=== PATIENT | male | born 1995 | race Caucasian/White ===

== ENCOUNTER 2017-02-13 11:34 | Emergency (ER) | payer OTHER ==
[2017-02-13 12:20] VITALS: BP 152/59
[2017-02-13] MEDS ORDERED: BSS OPTH.SOL* BTL ONE (12:24)
[2017-02-13] MEDS ORDERED: Tetracaine 0.5% OPTH.SOL 4 ML* 1 DROP BTL ONE (12:24)
[2017-02-13] MEDS ORDERED: Fluorescein Sodium TOPICAL* 1 MG TEST ONE ×2 (12:24→12:25)
--- NOTE | 2017-02-13 12:36 | UC ---
Eye Complaint HPI - HPI Summary HPI Summary: bilateral eye redness, itchy, discharge x 5 days no eye pain , no change in vision + nasal congestion, cough, no fever, no chills - History of Current Complaint Chief Complaint: UCGeneralIllness Stated Complaint: EYE COMPLAINT Hx Obtained From: Patient Onset/Duration: Gradual Onset, Lasting Days - 5, Still Present Timing: Constant Severity Initially: Moderate Severity Currently: Moderate Location of Injury: Conjunctiva Aggravating Factor(s): Nothing Alleviating Factor(s): Nothing Associated Signs And Symptoms: Negative: Photophobia, Drainage (Clear), Drainage (Purulent), Vision Impairment Bilateral, Vision Impairment Right, Vision Impairment Left, Fever, Swelling - Allergies/Home Medications Allergies/Adverse Reactions: Allergies Allergy/AdvReac Type Severity Reaction Status Date / Time No Known Allergies Allergy Verified 02/13/17 12:13 PMH/Surg Hx/FS Hx/Imm Hx Endocrine History Of: Denies: Diabetes, Thyroid Disease, Hyperthyroidism, Hypothyroidism, Dyslipidemia Cardiovascular History Of: Denies: Cardiac Disorders, Hypertension, Pacemaker/ICD, Myocardial Infarction , Congestive Heart Failure, Atrial Fibrillation, Deep Vein Thrombosis, Bleeding Disorders Respiratory History Of: Denies: COPD, Asthma, Bronchitis, Pneumonia, Pulmonary Embolism GI/ History Of: Denies: Gastroesophageal Reflux, Ulcer, Gastrointestinal Bleed, Gall Bladder Disease, Kidney Stones, Diverticulitis, Renal Disease, Urosepsis Neurological History Of: Denies: TIA, CVA, Dementia, Seizures, Migraine Psychological History Of: Denies: Anxiety, Depression, Bipolar Disorder, Schizophrenia, Post Traumatic Stress Disorder Cancer History Of: Denies: Lung Cancer, Colorectal Cancer, Breast Cancer, Prostate Cancer, Cervical Cancer Other History Of: Negative For: HIV, Hepatitis B, Hepatitis C, Anticoagulant Therapy - Surgical History Surgical History: Yes Surgery Procedure, Year, and Place: open reduction left fx fib/complete dislocation. tonsillectomy - Family History Known Family History: Positive: Cardiac Disease Negative: Hypertension - Social History Alcohol Use: Rare Substance Use Type: None Smoking Status (MU): Never Smoked Tobacco Review of Systems Constitutional: Negative Skin: Negative Eyes: Drainage, Eye Redness ENT: Sore Throat, Nasal Discharge Respiratory: Cough Cardiovascular: Negative Gastrointestinal: Negative All Other Systems Reviewed And Are Negative: Yes Physical Exam Triage Information Reviewed: Yes Appearance: Well-Appearing, No Pain Distress, Well-Nourished Vital Signs: Initial Vital Signs Temp 98.2 F 02/13/17 12:13 Pulse 53 02/13/17 12:13 Resp 18 02/13/17 12:13 BP 152/59 02/13/17 12:13 Pulse Ox 97 02/13/17 12:13 Vital Signs Reviewed: Yes Eyes: Positive: Conjunctiva Inflamed - bilateral, Discharge - bilateral ENT: Positive: Normal ENT inspection, Hearing grossly normal, Pharynx normal, Nasal congestion, Nasal drainage, TMs normal Neck: Positive: Supple, Nontender, No Lymphadenopathy Respiratory: Positive: Chest non-tender, Lungs clear, Normal breath sounds, No respiratory distress Cardiovascular: Positive: RRR, No Murmur, Pulses Normal Eye Complaint Course/Dx - Differential Dx/Diagnosis Provider Diagnoses: bilateral conjunctivitis. uri Discharge - Discharge Plan Condition: Stable Disposition: HOME Prescriptions: Tobramycin/Dexameth OPTH.SUSP* [Tobradex 0.3-0.1%*] 1 drop BOTH EYES Q4H #1 btl Patient Education Materials: Upper Respiratory Infection (ED), Conjunctivitis ( ED) Referrals: Non Staff,Doctor [Primary Care Provider] - If Needed
== END 2017-02-13 12:42 | disposition home or self-care (01) ==
LOC: UCCORT 11:34
DX: H10.9 Unspecified conjunctivitis (principal); J06.9 Acute upper respiratory infection, unspecified
CPT/HCPCS: 99212; A9270-GY; G0463

== ENCOUNTER 2018-01-08 16:21 | Emergency (ER) | payer OTHER ==
[2018-01-08 16:42] VITALS: BP 126/68
[2018-01-08] MEDS ORDERED: NS 0.9% 1000 ML* 1,000 ML IV ONE (17:38)
[2018-01-08] MEDS ORDERED: Ketorolac INJ* 30 MG/ML 1 ML VIAL IV PUSH ONE (17:39)
[2018-01-08] MEDS ORDERED: Ondansetron INJ* 2 MG/ML VIAL IV ONE (17:39)
--- NOTE | 2018-01-08 17:47 | UC ---
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 Pt states after his game yesterday did not feel well. Pt states ate steak and then promptly vomited. Since this time, pt with ongoing nausea, 2-3 episodes of emesis and 4-5 episodes of non-blood stool. Pt reports abdominal cramping and fever to 100.2 Pt did not take any analgesia. Pt attempted to eat toast but vomited. No johnson, congestions, sore throat. No cough. No cp, sob. Decreased urine. No pain in penis or testicles. Pt's medications reviewed this visit - History of Current Complaint Chief Complaint: UCGeneralIllness Stated Complaint: ABDOMINAL PAIN/VOMITING Time Seen by Provider: 01/08/18 17:30 Hx Obtained From: Patient, Other: - GF Onset/Duration: Sudden Onset, Lasting Days - 24 hours Severity Initially: Mild Severity Currently: Moderate Pain Intensity: 6 Pain Scale Used: 0-10 Numeric Location: Epigastric Character: Cramping Aggravating Factor(s): Food Alleviating Factor(s): Vomiting, Bowel Movement Nausea/Vomiting Presence: Nauseated, Vomiting Vomiting Frequency: Every 3-4 hours Nausea/Vomiting Duration: 12-24 hours Vomiting Characteristics: Retching, Nonbilious Diarrhea Presence: Yes Diarrhea Frequency: Every 3-4 hours Diarrhea Duration: 12-24 hours Diarrhea Characteristics: Watery - Allergies/Home Medications Allergies/Adverse Reactions: Allergies Allergy/AdvReac Type Severity Reaction Status Date / Time No Known Allergies Allergy Verified 01/08/18 16:37 PMH/Surg Hx/FS Hx/Imm Hx Previously Healthy: Yes Other History Of: Negative For: HIV, Hepatitis B, Hepatitis C, Anticoagulant Therapy - Surgical History Surgical History: Yes Surgery Procedure, Year, and Place: open reduction left fx fib/complete dislocation. tonsillectomy - Family History Known Family History: Positive: Cardiac Disease Negative: Hypertension - Social History Occupation: Student Lives: Dormitory/Roommates - house with roommates Alcohol Use: Rare Substance Use Type: None Smoking Status (MU): Never Smoked Tobacco Review of Systems Constitutional: Fever, Fatigue Gastrointestinal: Abdominal Pain, Vomiting, Nausea Genitourinary: Negative All Other Systems Reviewed And Are Negative: Yes Physical Exam Triage Information Reviewed: Yes Appearance: Well-Nourished, Ill-Appearing - tired appearing, dry no distress no obvious pain Vital Signs: Initial Vital Signs Temp 100.0 F 01/08/18 16:37 Pulse 64 01/08/18 16:37 Resp 18 01/08/18 16:37 BP 126/68 01/08/18 16:37 Pulse Ox 98 01/08/18 16:37 Eye Exam: Normal Eyes: Positive: Conjunctiva Clear ENT: Positive: Other - TM x2 clear lips dry, mmpasty no exudate, no erythema Dental Exam: Normal Neck exam: Normal Neck: Positive: Supple, Nontender, No Lymphadenopathy Respiratory Exam: Normal Respiratory: Positive: Chest non-tender, Lungs clear, Normal breath sounds, No respiratory distress, No accessory muscle use Cardiovascular Exam: Normal Cardiovascular: Positive: RRR, No Murmur, Pulses Normal Abdominal Exam: Normal Abdomen Description: Positive: No Organomegaly, Soft. Negative: Nontender - mild tenderness epigastric area. Bowel Sounds: Positive: Present Musculoskeletal Exam: Normal Neurological Exam: Normal Psychological Exam: Normal Skin Exam: Normal Re-Evaluation - Re-Evaluation First Eval Change: Improved - Pt reports feeling much improved No n/v. No abd pain drinking water and eating saltines will d/c with Rx zofran clear to bland return precautions school note Naus/Vom/Diarrhea Course/Dx - Course Course Of Treatment: Pt preseents wtih 24 hours n/v/d. 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 Pt dehydrated appearing on exam. pt with low grade temp. mild epigastric disomcomfort. Will give IVF, toradol, zofran. Pt comfortable and in agreement with plan. Pt declined offer to talk with parents - Differential Dx/Diagnosis Condition At Discharge: Improved Discharge - Sign-Out/Discharge Documenting (check all that apply): Discharge - Discharge Plan Condition: Improved Disposition: HOME Prescriptions: Ondansetron ODT TAB* [Zofran 4 MG Odt TAB*] 4 mg PO Q6H PRN #10 tab.odt PRN Reason: Nausea Patient Education Materials: Acute Nausea and Vomiting (ED), Acute Diarrhea (ED ) Forms: *Gen. Provider Communication, *School Release Referrals: Non Staff,Doctor [Primary Care Provider] - [facility] [Outside] Additional Instructions: The doctor who evaluated you today thinks your symptoms are related to a virus. -You have been given a prescription for nausea medication. Okay to take every 6 hours as needed for nausea -For the first 6 hours, eat and drink clears (water, virgen joce, soup broth, jello, popsicles, Gatorade). If you tolerate this okay, add bland foods such as dry toast, scrambled eggs, crackers. Wait until you are feeling better for 24 hours before eating spicy food, acidic food, tomato based food, fried food. - Okay to alternate ibuprofen (advil, Motrin) 600mg and tylenol every 3 hours for pain. Take with food. Do NOT take for more than 4-5 days - If you develop increased abdominal pain, ongoing uncontrolled pain or fevers it is recommended you go to the emergency department for additional evaluation and testing. - Billing Disposition and Condition Condition: IMPROVED Disposition: HOME
== END 2018-01-08 18:58 | disposition home or self-care (01) ==
LOC: UCCORT 16:21
DX: R11.2 Nausea with vomiting, unspecified (principal); R19.7 Diarrhea, unspecified; R50.9 Fever, unspecified; R53.83 Other fatigue; R10.816 Epigastric abdominal tenderness
CPT/HCPCS: 96361; 96374; 96375; 99212; G0463; J1885; J2405